=== PATIENT | female | born 1955 | race Caucasian/White ===

== ENCOUNTER 2016-06-07 20:04 | Emergency (ER) | payer OTHER, MEDICARE ==
[~2016-06-07] VITALS: Ht 157.5 cm; Wt 92.5 kg
--- NOTE | 2016-06-07 20:26 | ED MVC/FALL/TRAUMA COMPLAINT ---
History of Present Illness General Chief Complaint: Fall Stated Complaint: S/P FALL 06/05 HIT HEAD Source: patient, family Exam Limitations: no limitations Vital Signs & Intake/Output Vital Signs & Intake/Output Vital Signs Date Time Temp Pulse Resp B/P Pulse O2 O2 Flow FiO2 Ox Delivery Rate 06/07 2151 97.2 97 16 119/78 97 Room Air 06/07 2039 Room Air 06/07 2009 99.2 96 18 164/97 99 Room Air ED Intake and Output 06/08 0000 06/07 1200 Intake Total Output Total Balance Patient 204 lb Weight Allergies Coded Allergies: NO KNOWN ALLERGIES (09/30/13) Triage Note: PT TO TRIAGE S/P TRIPPED AND FELL 2DAYS AGO. PT C/O HEADACHE 8/10, LUE AND LLE PAIN, AND LEFT SIDE OF BODY PAIN. PT HIT HER HEAD, +LOC, SKIN ABRASIONS TO NOSE AND FOREHEAD, BRUISES TO FACE NOTED. PT SEEN HER PCP AFTER FALL AND GOT A TETANUS VACCINATION. PT DENIES DIZZINESS, NAUSEA. VSS. Triage Nurses Notes Reviewed? yes HPI: Patient is a 60-year-old female presents complaining of head injury, left wrist pain, left ankle pain status post fall. Patient reports she tripped and fell at approximately 1:30 PM on Thursday. Patient struck her head against the ground. Patient reports a loss of consciousness, that was brief, but patient is unsure of the duration of loss of conscious. Patient saw her primary care doctor after the fall, was administered a tetanus immunization and was told to come to the emergency department if any worsening of symptoms. Patient continues with pain that is 8 out of 10. Patient denies neck pain, change in vision, nausea, vomiting, decreased range of motion of her extremities (ASHLEY PATEL) Past History Travel History Traveled to [place] past 21 day No Medical History Any Pertinent Medical History? see below for history Endocrine: hypothyroidism Surgical History Surgical History: non-contributory Psychosocial History What is your primary language Japanese Tobacco Use: Never used ETOH Use: denies use Family History Hx Contributory? No (ASHLEY PATEL) Review of Systems Review of Systems Constitutional: Reports: no symptoms. Eyes: Denies: blurred vision. Ears, Nose, Throat, Mouth: Reports: nose pain. Respiratory: Denies: short of breath. Cardiovascular: Denies: chest pain. Gastrointestinal/Abdominal: Denies: abdominal pain, nausea, vomiting. Musculoskeletal: Reports: see HPI. Skin: Reports: no symptoms. Neurological/Psychological: Reports: see HPI. (ASHLEY PATEL) Physical Exam Physical Exam General Appearance: alert, awake Head: hematoma left forehead. Mild left parietal tenderness. No palpable step- offs or deformities. Ecchymosis inferior to bilateral eyes. Abrasion across the bridge of the nose. Mild tenderness to the nose Eyes: Bilateral: PERRL, EOMI. Ears, Nose, Throat, Mouth: hearing grossly normal, moist mucous membrane Neck: normal inspection, supple, full range of motion, no midline tenderness, no paraspinal tenderness Respiratory: normal breath sounds, chest non-tender, no respiratory distress, lungs clear Cardiovascular: regular rate/rhythm Peripheral Pulses: 2+ tibialis posterior (L), 2+ dorsalis pedis (L) Gastrointestinal: soft, non-tender Back: normal inspection, normal range of motion, no vertebral tenderness, no paraspinal tenderness Extremities: left wrist tenderness posteriorly. left ankle tenderness and bruising over the lateral malleolus. 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 No Severe Sepsis Present: No Septic Shock Present: No (ASHLEY PATEL) Progress Differential Diagnosis: aoritic dissection, abd injury, C/T/L spine injury, ext injury, ICH, pelvis injury, pnemothorax, spinal cord injury Plan of Care: Orders Procedure Date/time Status Durable Medical Equipment 06/07 2232 Active Patient declined pain medication on initial exam. 06/07/2016 10:33:59 PM: Results of CT scans and x-rays discuss with the patient. No acute neurologic abnormalities on exam. Patient appears stable for discharge. Air splint and Velcro wrist splint applied by nursing staff. Patient appears stable for discharge. (ASHLEY PATEL) Diagnostic Imaging: Viewed by Me: CT Scan. Discussed w/RAD: CT Scan. Radiology Impression: PATIENT: LA BELTRAN PRESENT AGE: 60 PATIENT ACCOUNT NO: [id number] : 56 LOCATION: [facility] ORDERING PHYSICIAN: ASHLEY DOUGLAS SERVICE DATE: 06/07/16 EXAM TYPE: CAT - CT HEAD WO IV CONTRAST EXAMINATION: CT HEAD WITHOUT CONTRAST CLINICAL INFORMATION: Fall, head trauma COMPARISON: None TECHNIQUE: Contiguous axial imaging was performed from the skull base to vertex without intravenous administration of contrast. DLP: 1385.44 mGy-cm FINDINGS: There is mild loss of brain volume with associated dilatation of CSF space, more than expected for patient's age. There are scattered bilateral periventricular and deep white matter hypodensities, nonspecific findings and could represent chronic ischemic changes of the small vessel disease. There is no acute intracranial hemorrhage or sign of transtentorial herniation or midline shift. The ventricles are within normal limits. There is a 17 mm left frontal scalp hematoma. There is no acute skull fracture. No extra-axial fluid collections are identified. The mastoid air cells are well pneumatized. There is complete opacification of left maxillary sinus with thickening of the periosteal lining, suggestive of acute on chronic sinusitis. The density of soft tissue within the left maxillary sinus these 37 Hounsfield units. There is partial opacification of bilateral ethmoid air cells and left frontal sinus. No air-fluid level seen. There is no acute fracture or dislocation of the visualized cervical spine or facial bones. IMPRESSION: 1. No acute intracranial hemorrhage or acute skull fracture. 2. A small left frontal scalp hematoma. 3. Pansinusitis, most predominantly involving the left maxillary sinus which also demonstrates signs of chronic sinusitis. 4. Chronic ischemic changes of small vessel disease. DICTATED BY: LUANN WIGGINS MD DATE/TIME DICTATED:06/07/162101 SCHOOL SOCIAL WORKER:JT DATE/TIME TRANSCRIBED:2101 CONFIDENTIAL, DO NOT COPY WITHOUT APPROPRIATE AUTHORIZATION. < Electronically signed in Other Vendor System> SIGNED BY: LUANN WIGGINS MD 06/07/162118, PATIENT: LA BELTRAN PRESENT AGE: 60 PATIENT ACCOUNT NO: [id number] : 56 LOCATION: [facility] ORDERING PHYSICIAN: ASHLEY DOUGLAS SERVICE DATE: 06/07/16 EXAM TYPE: CAT - CT MAXILLOFACIAL W/O CON EXAMINATION: CT MAXILLOFACIAL WITHOUT CONTRAST CLINICAL INFORMATION: Pain status post fall COMPARISON: None TECHNIQUE: Multidetector helical imaging was performed in the axial plane with generation of coronal and sagittal reformatted images. DLP: 1385 mGy-cm FINDINGS: There is no fracture seen. There is mild mucosal disease involving the paranasal sinuses and the left maxillary sinus is expanded. It is probably opacified with soft tissue attenuating abnormality. No destructive bony lesion. There is thickening of the maxillary sinus margins bilaterally suggesting an element of chronic reactive phenomena due to sinus disease. Deformity of the right nasal bone consistent with an old injury. IMPRESSION: No fracture. Changes of chronic sinus disease. On the left, possibility of a polypoid disease such as an antrochoanal polyp versus chronic mucocele within the maxillary sinus should be considered. DICTATED BY: FLORINDA FLOWERS MD DATE/TIME DICTATED:06/07/162108 SCHOOL SOCIAL WORKER: JT DATE/TIME TRANSCRIBED:06/07/162108 CONFIDENTIAL, DO NOT COPY WITHOUT APPROPRIATE AUTHORIZATION. <Electronically signed in Other Vendor System> SIGNED BY: FLORINDA FLOWERS MD 06/07/162118, PATIENT: LA BELTRAN PRESENT AGE: 60 PATIENT ACCOUNT NO: [id number] : LOCATION: [facility] ORDERING PHYSICIAN: ASHLEY DOUGLAS SERVICE DATE: 06/07/16 EXAM TYPE: RAD - XRY-ANKLE 3 OR MORE VIEWS L; XRY-WRIST COMPLETE- LEFT EXAMINATION: 3 VIEWS LEFT ANKLE AND 4 VIEWS LEFT WRIST CLINICAL INFORMATION : Pain status post fall COMPARISON: None. TECHNIQUE: Digital FINDINGS: Limited positioning. There is diffuse soft tissue swelling about the wrist. Scaphoid intact. No gross deformity. Hypertrophic changes dorsally about the proximal carpal row most consistent with carpal bossing. Distal radius appears grossly intact. Left ankle: Diffuse soft tissue swelling. Ankle mortise anatomic. No acute deformity. Bulky calcaneal spurring. IMPRESSION: No fracture. DICTATED BY: FLORINDA FLOWERS MD DATE/TIME DICTATED:06/07/162156 SCHOOL SOCIAL WORKER:JT DATE /TIME TRANSCRIBED:06/07/162156 CONFIDENTIAL, DO NOT COPY WITHOUT APPROPRIATE AUTHORIZATION. <Electronically signed in Other Vendor System> SIGNED BY: FLORINDA FLOWERS MD 06/07/162222 (SABIHA DOUGLAS,ASHLEY) Departure Departure Time of Disposition: 2233 Disposition: HOME OR SELF CARE Condition: Stable Clinical Impression Primary Impression: Head contusion Secondary Impressions: Concussion, Left ankle sprain, Left wrist sprain Referrals: KEVAN VERA,RUTH (PCP/Family) DON DICK MD Additional Instructions: Rest, ice the affected areas for 20 minutes 4-5 times a day. Follow-up with your primary care provider or with Don Dick MD (orthopedist) if no improvement with your wrist or ankle within 3-5 days. Return to the emergency department if numbness, weakness, pain uncontrollable, or worsening of symptoms. Departure Forms: Customer Survey General Discharge Information (ASHLEY PATEL) PA/NUTRITION THERAPIST Co-Sign Statement Statement: ED Attending supervision documentation- x I saw and evaluated the patient. I have also reviewed all the pertinent lab results and diagnostic results. I agree with the findings and the plan of care as documented in the PA's/NUTRITION THERAPIST's documentation. [] I have reviewed the ED Record and agree with the PA's/NUTRITION THERAPIST's documentation. [] Additions or exceptions (if any) to the PAs/NUTRITION THERAPIST's note and plan are summarized below: [] (SHAI VERA,IKE)
--- NOTE | 2016-06-07 21:19 | CT SCAN REPORT ---
EXAMINATION: CT HEAD WITHOUT CONTRAST CLINICAL INFORMATION: Fall, head trauma COMPARISON: None TECHNIQUE: Contiguous axial imaging was performed from the skull base to vertex without intravenous administration of contrast. DLP: 1385.44 mGy-cm FINDINGS: There is mild loss of brain volume with associated dilatation of CSF space, more than expected for patient's age. There are scattered bilateral periventricular and deep white matter hypodensities, nonspecific findings and could represent chronic ischemic changes of the small vessel disease. There is no acute intracranial hemorrhage or sign of transtentorial herniation or midline shift. The ventricles are within normal limits. There is a 17 mm left frontal scalp hematoma. There is no acute skull fracture. No extra-axial fluid collections are identified. The mastoid air cells are well pneumatized. There is complete opacification of left maxillary sinus with thickening of the periosteal lining, suggestive of acute on chronic sinusitis. The density of soft tissue within the left maxillary sinus these 37 Hounsfield units. There is partial opacification of bilateral ethmoid air cells and left frontal sinus. No air-fluid level seen. There is no acute fracture or dislocation of the visualized cervical spine or facial bones. IMPRESSION: 1. No acute intracranial hemorrhage or acute skull fracture. 2. A small left frontal scalp hematoma. 3. Pansinusitis, most predominantly involving the left maxillary sinus which also demonstrates signs of chronic sinusitis. 4. Chronic ischemic changes of small vessel disease.
--- NOTE | 2016-06-07 21:19 | CT SCAN REPORT ---
EXAMINATION: CT MAXILLOFACIAL WITHOUT CONTRAST CLINICAL INFORMATION: Pain status post fall COMPARISON: None TECHNIQUE: Multidetector helical imaging was performed in the axial plane with generation of coronal and sagittal reformatted images. DLP: 1385 mGy-cm FINDINGS: There is no fracture seen. There is mild mucosal disease involving the paranasal sinuses and the left maxillary sinus is expanded. It is probably opacified with soft tissue attenuating abnormality. No destructive bony lesion. There is thickening of the maxillary sinus margins bilaterally suggesting an element of chronic reactive phenomena due to sinus disease. Deformity of the right nasal bone consistent with an old injury. IMPRESSION: No fracture. Changes of chronic sinus disease. On the left, possibility of a polypoid disease such as an antrochoanal polyp versus chronic mucocele within the maxillary sinus should be considered.
[2016-06-07 21:52] VITALS: BP 119/78
--- NOTE | 2016-06-07 22:23 | RADIOLOGY REPORT ---
EXAMINATION: 3 VIEWS LEFT ANKLE AND 4 VIEWS LEFT WRIST CLINICAL INFORMATION: Pain status post fall COMPARISON: None. TECHNIQUE: Digital FINDINGS: Limited positioning. There is diffuse soft tissue swelling about the wrist. Scaphoid intact. No gross deformity. Hypertrophic changes dorsally about the proximal carpal row most consistent with carpal bossing. Distal radius appears grossly intact. Left ankle: Diffuse soft tissue swelling. Ankle mortise anatomic. No acute deformity. Bulky calcaneal spurring. IMPRESSION: No fracture.
== END 2016-06-07 22:46 ==
LOC: ERH 20:04
DX: S93.402A Sprain of unspecified ligament of left ankle, initial encounter (principal); S63.502A Unspecified sprain of left wrist, initial encounter; S06.0X1A Concussion with loss of consciousness of 30 minutes or less, initial encounter; S00.93XA Contusion of unspecified part of head, initial encounter; W19.XXXA Unspecified fall, initial encounter
CPT/HCPCS: 73110-LT; 73610-LT